=== PATIENT | female | born 1935 | race Hispanic/Latino ===

== ENCOUNTER 2017-03-24 08:23 | Emergency (ER) | payer MEDICARE ==
[2017-03-24 08:58] LABS: Basophils % (Auto) 0.8 % (0.0-1.8); Eosinophils % (Auto) 1.9 % (0.0-4.3); Hematocrit 41.6 % (30.3-42.9); Hemoglobin 13.7 gm/dl (10.1-14.3); Mean Corpuscular HGB Conc 33 % (30-34); Mean Corpuscular Hemoglobin 30 pg (28-32); Mean Corpuscular Volume 91 fl (79-97); Platelet Count 173 K/mm3 (140-440); Red Blood Count 4.56 M/mm3 (3.65-5.03); Red Cell Distribution Width 13.7 % (13.2-15.2); White Blood Count 3.6 K/mm3 (4.5-11.0)
[2017-03-24 09:15] LABS: Alanine Aminotransferase 6 units/L (7-56); Albumin 3.5 g/dL (3.9-5); Albumin/Globulin Ratio 1.2 %; Alkaline Phosphatase 65 units/L (35-129); Anion Gap 16 mmol/L; Blood Urea Nitrogen 12 mg/dL (7-17); Calcium 8.8 mg/dL (8.4-10.2); Carbon Dioxide 25 mmol/L (22-30); Chloride 104.2 mmol/L (98-107); Glucose 98 mg/dL (65-100); Potassium 3.8 mmol/L (3.6-5.0); Sodium 141 mmol/L (137-145); Total Protein 6.4 g/dL (6.3-8.2)
[2017-03-24] MEDS ORDERED: NACL 0.9% 500 ML 500 ML IV ONE (13:00)
[2017-03-24] MEDS ORDERED: MORPHINE IV ONE (13:00)
[2017-03-24] MEDS ORDERED: ZOFRAN IV ONE (13:00)
[2017-03-24 13:45] LABS: Alanine Aminotransferase 6 units/L (7-56); Albumin 3.5 g/dL (3.9-5); Albumin/Globulin Ratio 1.2 %; Alkaline Phosphatase 66 units/L (35-129); Total Protein 6.4 g/dL (6.3-8.2)
[2017-03-24 13:46] LABS: Bilirubin,Direct < 0.2 mg/dL (0-0.2)
--- NOTE | 2017-03-24 13:58 | XRay Report ---
AP CHEST: HISTORY: Weakness AP view of the chest demonstrates a normal mediastinal and cardiac contour with clear lungs and normal bony and soft tissue structures. IMPRESSION: No acute process identified.
[2017-03-24 14:25] LABS: Bilirubin,Urine NEG (Negative); Blood,Urine NEG (Negative); Ketones,Urine NEG (Negative); Leukocyte Esterase,Urine NEG (Negative); Mucus,Urine FEW /HPF; Nitrite,Urine NEG (Negative); Protein,Urine <15 mg/dL mg/dL (Negative); Urobilinogen,Urine < 2.0 mg/dL (<2.0); WBC,Urine < 1.0 /HPF (0.0-6.0)
--- NOTE | 2017-03-24 16:06 | Emergency Department Report ---
HPI - General Chief Complaint: Extremity Injury, Upper Time Seen by Provider: 03/24/17 12:36 - HPI HPI: The patient is an 82-year-old female with a history of chronic bilateral hand pain for greater than 3 years, whom presents for evaluation recurrence of hand pain. The patient reports bilateral hand pain recurrence of the past 2-3 days, constant since onset, achy in quality, 9/10 in severity, exacerbated with use of the hands and fingers. She denies trauma or new injury to the hands, extremities, neck, or head. She also denies fever, headache, paresthesias, motor deficits, or other focal neurological deficits. ED Past Medical Hx - Past Medical History Previous Medical History?: Yes Additional medical history: MS. HIGH CHOLESTEROL - Surgical History Past Surgical History?: Yes Hx Appendectomy: Yes Additional Surgical History: CARPAL TUNNEL BOTH HANDS. HYSTERECTOMY. CATARACTS REMOVED BOTH EYES - Social History Smoking Status: Never Smoker Substance Use Type: None - Medications Home Medications: Home Medications Medication Instructions Recorded Confirmed Last Taken Type Ciprofloxacin HCl [Ciprofloxacin 500 mg PO BID #14 tablet 07/01/14 Unknown Rx TAB] ED Review of Systems ROS: Stated complaint: HAND PAIN Other details as noted in HPI Constitutional: denies: fever ENT: denies: throat or neck pain Respiratory: denies: cough, shortness of breath Cardiovascular: denies: chest pain Endocrine: denies unexplained weight loss or gain Gastrointestinal: denies: abdominal pain, nausea Genitourinary: denies: dysuria Musculoskeletal: reports hand pain denies: leg swelling Skin: denies: rash Neurological: denies: headache Hematological/Lymphatic: denies: easy bleeding or easy bruising Psych: denies sadness or hopelessness Physical Exam - Physical Exam Vital Signs: Vital Signs 03/24/17 03/24/17 03/24/17 08:30 13:02 15:15 Temperature 98.9 F 98.4 F Pulse Rate 61 60 Respiratory 16 20 20 Rate Blood Pressure 192/80 Blood Pressure 179/78 [Left] O2 Sat by Pulse 94 96 Oximetry Physical Exam: General: well-nourished, well-developed, no acute distress Head: Normocephalic, atraumatic Eyes: normal sclera ENT: Mucous membranes are pink and moist Neck: trachea midline, neck supple, No neck stiffness, no cervical adenopathy Respiratory: Breath sounds equal bilaterally, no wheezing, rales, or rhonchi Cardio: S1 and S2 present, no murmurs, rubs, gallops, capillary refill is brisk Abdomen: Normoactive bowel sounds, soft abdomen, no rigidity, no guarding or rebound tenderness Musc: Bilateral dorsal and palmar hand tenderness to palpation present, there is no redness, swelling, warmth, or fluctuance to the has bilaterally, sensation and motor function intact to the bilateral wrists, hands, and digits, distal pulses intact, capillary refill brisk in all digits, No pitting edema Skin: No rash Neuro: no facial drooping, normal speech Psych: Normal affect ED Course Vital Signs 03/24/17 03/24/17 03/24/17 08:30 13:02 15:15 Temperature 98.9 F 98.4 F Pulse Rate 61 60 Respiratory 16 20 20 Rate Blood Pressure 192/80 Blood Pressure 179/78 [Left] O2 Sat by Pulse 94 96 Oximetry ED Medical Decision Making - Lab Data Result diagrams: 03/24/17 08:38 03/24/17 08:38 - Medical Decision Making The patient was seen and examined by myself. The patient is placed on a monitoring analyst and continuous pulse ox. On initial evaluation, the patient was found to be in no distress. Evaluation orders are placed. IV access is established and the patient is given 1 L normal saline fluid bolus and Zofran for nausea, and IV analgesic for pain. Lab results were non-concerning including WBC, hemoglobin, hematocrit, electrolytes, renal function, and urinalysis. The patient was reevaluated and reported that their symptoms were markedly improved. The patient is stable for discharge with outpatient follow- up. The patient is given follow-up and return instructions. The patient expressed understanding and agreed with the plan. The patient is discharged in stable condition. Critical care attestation.: If time is entered above; I have spent that time in minutes in the direct care of this critically ill patient, excluding procedure time. ED Disposition Clinical Impression: Dehydration, Ill feeling Hand and foot pain Qualifiers: Laterality: unspecified laterality Qualified Code(s): M79.643 - Pain in unspecified hand Disposition: DC-01 TO HOME OR SELFCARE Is pt being admited?: No Does the pt Need Aspirin: No Condition: Stable Instructions: Dehydration (ED), Peripheral Neuropathy (ED), Musculoskeletal Pain (ED), Arthralgia (ED) Referrals: KEVYN DUNHAM MD [Primary Care Provider] - 3-5 Days Time of Disposition: 16:02
[2017-03-24 17:21] VITALS: BP 179/95
== END 2017-03-24 17:35 | disposition home or self-care (01) ==
LOC: ED 08:23
DX: M79.641 Pain in right hand (principal); M79.642 Pain in left hand; E86.0 Dehydration; E78.00 Pure hypercholesterolemia, unspecified; Z88.0 Allergy status to penicillin
CPT/HCPCS: 36415; 51701; 71010; 80053; 80074; 81001; 83690; 83880; 84484; 85025; 93005; 93010; 96374; 96375; 99284; J2270; J2405; J7040